=== PATIENT | female | born 1930 | race African-American/Black ===

== ENCOUNTER 2017-09-26 14:13 | Observation (INO) ==
[2017-09-26 15:06] LABS: Basophils % 0.5 %; Eosinophils # 0.1 K/mcL (0.0-0.6); Eosinophils % 2.6 %; Hematocrit 32.8 % (35.3-44.9); Hemoglobin 11.1 g/dL (11.5-15.4); Immature Granulocytes % 0.3 % (0-4); Lymphocytes # 1.4 K/mcL (0.6-4.6); Lymphocytes % 35.5 %; Mean Corpuscular HGB Conc 33.8 g/dL (31.6-35.5); Mean Corpuscular Hemoglobin 32.4 pg (28.0-33.3); Mean Corpuscular Volume 95.6 fL (83.0-100.0); Mean Platelet Volume 9.8 fL (9.4-12.4); Monocytes # 0.5 K/mcL (0.0-1.3); Neutrophils # 1.9 K/mcL (1.6-8.9); Platelet Count 124 K/mcL (140-400); Red Blood Count 3.43 M/mcL (3.82-4.97); Red Cell Distribution Width 12.1 % (11.5-14.5); Segmented Neutrophils % 49.1 %
[2017-09-26 15:13] LABS: Bilirubin,Urine Negative (Negative); Blood,Urine Trace-intact (Negative); Clarity,Urine Clear (Clear); Color,Urine Yellow (Yellow); Glucose,Urine (UA) Normal (Normal); Ketones,Urine Negative (Negative); Leukocyte Esterase,Urine Moderate (Negative); Nitrite,Urine Negative (Negative); PH,Urine 6.5 pH Units (5.0-8.0); Protein,Urine 30 mg/dL (Neg-Trace); Urobilinogen,Urine Normal (Normal)
[2017-09-26 15:15] LABS: Bacteria,Urine Moderate per hpf (None-Few); RBC,Urine 0-3 per hpf (0-3); Squamous Epithelial Cell,Urine Few per lpf (None-Few); WBC,Urine 50-100 per hpf (0-3)
[2017-09-26 15:26] LABS: Albumin 3.1 g/dL (3.5-5.0); Albumin/Globulin Ratio 0.8 (1.1-2.2); Bilirubin,Total 0.5 mg/dL (0.2-1.2); Globulin 3.7 g/dL (2.4-3.5); Potassium 4.3 mEq/L (3.5-4.5); Total Protein 6.8 g/dL (6.0-8.3)
[2017-09-26] MEDS ORDERED: cefTRIAXone 1,000 MG in Water for inj. (sterile) 10 ML IVP ONE ×2 (15:41→15:52)
[2017-09-26] MEDS ORDERED: 0.9 % Sodium Chloride 1,000 ML IVC SCH (15:45)
--- NOTE | 2017-09-26 15:50 | Emergency Department Note ---
Disposition Clinical Impression: Dizziness Urinary tract infection Qualifiers: Urinary tract infection type: acute cystitis Hematuria presence: without hematuria Qualified Code(s): N30.00 - Acute cystitis without hematuria Disposition: Admitted As Inpatient Time of Disposition: 15:58 Dizziness HPI - General Chief Complaint: ED Dizziness Stated Complaint: Off Balance Time Seen by Provider: 09/26/17 14:19 Source: patient Mode of arrival: EMS Limitations: no limitations Nursing Notes Reviewed: Yes Vital Signs Reviewed: Yes - History of Present Illness HPI Narrative: 87-year-old female presents from home via EMS with complaints of frequent falls. Family reports patient got up and had a syncopal episode. Patient herself denies any complaints. Family reports patient falls frequently due to weakness in her lower extremities. Patient reports she did not hit her head but no loss of consciousness. Denies any nausea or vomiting. Pt Subjective Complaint: near syncope Onset (ago): [employer] Timing: sudden onset Description: "room spinning", lightheadedness, off-balance History of similar episodes: Yes History of trauma: Yes Severity: moderate Improves with: nothing Worsens with: position Associated symptoms: Reports: confusion. Denies: chest pain - Related Data Home Medications Medication Instructions Recorded Confirmed Aspirin 325 mg PO DAILY 02/10/16 09/26/17 Atorvastatin Calcium [Lipitor] 20 mg PO DAILY 02/10/16 09/26/17 Calcium Carbonate/Vitamin D2 1 each PO DAILY 02/10/16 09/26/17 [Oyster Shell Calcium-Vit D Tab] Clopidogrel [Plavix] 75 mg PO DAILY 02/10/16 09/26/17 Ergocalciferol (VITAMIN D2) 50,000 unit PO QWEEK 02/10/16 09/26/17 [Vitamin D2 (50,000 UNIT)] Furosemide [Lasix] 40 mg PO DAILY 02/10/16 09/26/17 Isosorbide MONOnitrate (24 HR) 60 mg PO DAILY 02/10/16 09/26/17 [Imdur] Nitroglycerin [Nitrostat] 0.4 mg SL ONCE PRN 02/10/16 09/26/17 Polyethylene Glycol 3350 [MiraLAX] 17 gm PO DAILY PRN 02/10/16 09/26/17 Ranolazine [Ranexa] 1,000 mg PO BID 02/10/16 09/26/17 Raloxifene [Evista] 60 mg PO DAILY 07/03/16 09/26/17 Citalopram Hydrobromide 10 mg PO DAILY 09/26/17 09/26/17 [Citalopram HBr] Propranolol HCl 60 mg PO DAILY 09/26/17 09/26/17 Previous Rx's Medication Instructions Recorded Cyanocobalamin (Vitamin B-12) 2,000 mcg PO DAILY #30 tablet 04/27/17 [Vitamin B-12] Allergies Allergy/AdvReac Type Severity Reaction Status Date / Time No Known Allergies Allergy Verified 09/26/17 14:30 All systems ED: reviewed and negative except as stated. Review of Systems: As Per HPI Constitutional: Denies: fever, chills ENT ED: Reports: other (pt extremely hardof hearing) Cardiovascular: Denies: chest pain, palpitations Respiratory: Denies: cough, dyspnea Gastrointestinal: Denies: nausea, vomiting Genitourinary: Reports: frequency Musculoskeletal: Denies: back pain Integumentary: Denies: rash Neurological: Reports: vertigo. Denies: headache, weakness, numbness Past Medical History - Past Medical History Attestation: Yes The following information was validated with the patient. Source: patient, nursing notes reviewed Medical history: Reports: arthritis, CHF, coronary artery disease, hyperlipidemia, hypertension, myocardial infarction, peripheral artery disease, renal disease Surgical history: Reports: carotid endarterectomy, coronary bypass (CABG), hysterectomy, orthopedic, other, other Psychiatric history: Reports: no psych history MACHINE CUTTER history: Reports: no MACHINE CUTTER history - Social History Smoking Status: Never smoker Smokeless Tobacco Status: No Alcohol use: Reports: unknown Drug use: Reports: none Physical Exam - General Limitations: no limitations General appearance: alert, in no apparent distress - Head Head exam: atraumatic, normocephalic - Eye Eye exam: Present: PERRL, EOMI. Absent: conjunctival injection - ENT ENT exam: normal oropharynx, mucous membranes moist - Neck Neck exam: Present: normal inspection, full ROM. Absent: tenderness - Chest Chest inspection: Present: normal inspection, symmetric chest wall rise - Respiratory Respiratory exam: Present: normal lung sounds bilaterally - Cardiovascular Cardiovascular exam: Present: regular rate, normal rhythm, normal heart sounds - Abdominal Exam Abdominal exam: Present: soft, Non-Tender, normal bowel sounds - Extremities Exam Extremities exam: Present: normal inspection. Absent: pedal edema - Neurological Exam Neurological exam: Present: alert, oriented X3, CN II-XII intact. Absent: normal gait (pt very unsteady on feet), motor sensory deficit - Psychiatric Psychiatric exam: Present: normal affect - Skin Skin exam: Present: warm, dry, intact, normal color Course Course Narrative: spoke with Dr Lawrence he has accepted pt to be admitted her for further evaluation Vital Signs Temperature 98.5 F 09/26/17 14:13 Pulse Rate 56 09/26/17 14:13 Respiratory Rate 16 09/26/17 14:13 Blood Pressure 180/69 09/26/17 14:13 O2 Sat by Pulse Oximetry 94 09/26/17 14:13 Temperature 97.7 F 09/26/17 21:00 Pulse Rate 63 09/26/17 21:00 Respiratory Rate 16 09/26/17 21:00 Blood Pressure 178/70 09/26/17 21:00 O2 Sat by Pulse Oximetry 96 09/26/17 21:00 Oxygen Delivery Oxygen Delivery Room Air Dizziness - Differential Diagnosis Unlikely: cerebellar infarct, cerebellar tumor - Lab Data Lab results reviewed: Yes I reviewed the patient's lab results. Lab results narrative: Patient with chronic pancytopenia. Patient with chronic renal insufficiency. Patient's urine is positive with infection. Result diagrams: 09/26/17 15:00 09/26/17 15:00 Lab Results 09/26/17 09/26/17 09/26/17 Range/Units 14:52 15:00 15:00 WBC 3.8 L (4.3-11.1) K/mcL RBC 3.43 L (3.82-4.97) M/mcL Hgb 11.1 L (11.5-15.4) g/dL Hct 32.8 L (35.3-44.9) % MCV 95.6 (83.0-100.0) fL MCH 32.4 (28.0-33.3) pg MCHC 33.8 (31.6-35.5) g/dL RDW 12.1 (11.5-14.5) % Plt Count 124 L (140-400) K/mcL MPV 9.8 (9.4-12.4) fL Immature Gran % 0.3 (0-4) % Seg Neutrophils % 49.1 % Lymphocytes % 35.5 % Monocytes % 12.0 % Eosinophils % 2.6 % Basophils % 0.5 % Neutrophils # 1.9 (1.6-8.9) K/mcL Lymphocytes # 1.4 (0.6-4.6) K/mcL Monocytes # 0.5 (0.0-1.3) K/mcL Eosinophils # 0.1 (0.0-0.6) K/mcL Basophils # 0.0 (0.0-0.2) K/mcL Sodium 140 (136-145) mEq/L Potassium 4.3 (3.5-4.5) mEq/L Chloride 106 (98-109) mEq/L Carbon Dioxide 22 (19-29) mEq/L BUN 31 H (7-20) mg/dL Creatinine 1.79 H (0.57-1.11) mg/dL Est GFR ( Amer) 33 L (> 60) Est GFR (Non-Af Amer) 27 L (> 60) BUN/Creatinine Ratio 17 (6-26) Glucose 95 (70-99) mg/dL Calculated Osmolality 296 (280-300) Calcium 9.0 (8.6-10.8) mg/dL Total Bilirubin 0.5 (0.2-1.2) mg/dL AST 17 (5-34) Units/L ALT 12 (0-55) Units/L Alkaline Phosphatase 70 (38-126) Units/L Creatine Kinase 63 (29-168) Units/L Troponin I (0-0.03) ng/mL Serum Total Protein 6.8 (6.0-8.3) g/dL Albumin 3.1 L (3.5-5.0) g/dL Globulin 3.7 H (2.4-3.5) g/dL Albumin/Globulin Ratio 0.8 L (1.1-2.2) Urine Color Yellow (Yellow) Urine Clarity Clear (Clear) Urine pH 6.5 (5.0-8.0) pH Units Ur Specific [place] 1.020 (1.010-1.025) Urine Protein 30 H (Neg-Trace) mg/dL Urine Glucose (UA) Normal (Normal) mg/dL Urine Ketones Negative (Negative) mg/dL Urine Blood Trace-intact H (Negative) Urine Nitrite Negative (Negative) Urine Bilirubin Negative (Negative) Urine Urobilinogen Normal (Normal) mg/dL Ur Leukocyte Esterase Moderate H (Negative) Urine Microscopic RBC 0-3 (0-3) per hpf Urine Microscopic WBC 50-100 H (0-3) per hpf Ur Squamous Epith Cells Few (None-Few) per lpf Urine Bacteria Moderate H (None-Few) per hpf Ur Culture Indicated? YES A (NO) 09/26/17 Range/Units 15:00 WBC (4.3-11.1) K/mcL RBC (3.82-4.97) M/mcL Hgb (11.5-15.4) g/dL Hct (35.3-44.9) % MCV (83.0-100.0) fL MCH (28.0-33.3) pg MCHC (31.6-35.5) g/dL RDW (11.5-14.5) % Plt Count (140-400) K/mcL MPV (9.4-12.4) fL Immature Gran % (0-4) % Seg Neutrophils % % Lymphocytes % % Monocytes % % Eosinophils % % Basophils % % Neutrophils # (1.6-8.9) K/mcL Lymphocytes # (0.6-4.6) K/mcL Monocytes # (0.0-1.3) K/mcL Eosinophils # (0.0-0.6) K/mcL Basophils # (0.0-0.2) K/mcL Sodium (136-145) mEq/L Potassium (3.5-4.5) mEq/L Chloride (98-109) mEq/L Carbon Dioxide (19-29) mEq/L BUN (7-20) mg/dL Creatinine (0.57-1.11) mg/dL Est GFR ( Amer) (> 60) Est GFR (Non-Af Amer) (> 60) BUN/Creatinine Ratio (6-26) Glucose (70-99) mg/dL Calculated Osmolality (280-300) Calcium (8.6-10.8) mg/dL Total Bilirubin (0.2-1.2) mg/dL AST (5-34) Units/L ALT (0-55) Units/L Alkaline Phosphatase (38-126) Units/L Creatine Kinase (29-168) Units/L Troponin I 0.01 (0-0.03) ng/mL Serum Total Protein (6.0-8.3) g/dL Albumin (3.5-5.0) g/dL Globulin (2.4-3.5) g/dL Albumin/Globulin Ratio (1.1-2.2) Urine Color (Yellow) Urine Clarity (Clear) Urine pH (5.0-8.0) pH Units Ur Specific [place] (1.010-1.025) Urine Protein (Neg-Trace) mg/dL Urine Glucose (UA) (Normal) mg/dL Urine Ketones (Negative) mg/dL Urine Blood (Negative) Urine Nitrite (Negative) Urine Bilirubin (Negative) Urine Urobilinogen (Normal) mg/dL Ur Leukocyte Esterase (Negative) Urine Microscopic RBC (0-3) per hpf Urine Microscopic WBC (0-3) per hpf Ur Squamous Epith Cells (None-Few) per lpf Urine Bacteria (None-Few) per hpf Ur Culture Indicated? (NO) - Radiology Data Radiology results reviewed: Yes I reviewed the patient's radiology results. Patient's CT head was interpreted by the radiologist as positive for which can make stable. Positive for chronic white matter changes consistent with age- related changes. No acute malady seen. Results discussed with family. - EKG Data EKG attestation: Yes I reviewed and interpreted this EKG. EKG shows normal: sinus rhythm Rate: normal Rhythm: NSR [place]/QRS: normal Interpretation: no acute changes
[2017-09-26] MEDS ORDERED: Nitroglycerin 0.4 MG TAB.SUBL SL PRN (15:53)
[2017-09-26] MEDS ORDERED: Naloxone 0.4 MG/ML INJ IVP PRN (15:57)
[2017-09-26] MEDS: 0.9 % Sodium Chloride 1,000 ML IVC SCH (16:37)
--- NOTE | 2017-09-26 16:58 | Internal Med History&Physical ---
Date of Encounter: 09/26/17 Time of Encounter: 16:30 Assessment and Plan (1) Atrial fibrillation with controlled ventricular rate Current visit: Yes Status: Acute I reviewed her chart in [facility] including Dr. Austin Goodman note from April 28, 2017. I can't find any history of previous atrial fibrillation. She has no history of CVA. She certainly gives a history of frequent falls. Her rate is controlled. CT done in the ED here did not show any acute abnormality. I would not pursue anticoagulation on her at this time. Most recent echocardiogram was May 03, 2017 which showed ejection fraction of 60% and moderate aortic stenosis, otherwise normal, good wall motion diffusely. (2) Hypertension Current visit: Yes Status: Acute Her systolic blood pressure was above 200 by single reading here in the hospital. For right now we'll just continue to monitor as I don't think she has any acute symptoms of elevated blood pressure. Qualifiers: Hypertension type: essential hypertension Qualified Code(s): I10 - Essential (primary) hypertension (3) CKD (chronic kidney disease) stage 3, GFR 30-59 ml/min Current visit: Yes Status: Acute hher chronic kidney dise darks tools she describes aren't likely secondary to her oral iron supplementation which is listed in [facility] but not in her current chart. Code(s): N18.3 - Chronic kidney disease, stage 3 (moderate) (4) Pernicious anemia Current visit: Yes Status: Acute Her anemia is mild and chronic and stable. Code(s): D51.0 - Vitamin B12 deficiency anemia due to intrinsic factor deficiency (5) CAD (coronary artery disease) Current visit: Yes Status: Acute She is having no current symptoms. Qualifiers: Coronary Disease-Associated Artery/Lesion type: bypass graft, autologous vein Associated angina: without angina Qualified Code(s): I25.810 - Atherosclerosis of coronary artery bypass graft(s) without angina pectoris (6) HLD (hyperlipidemia) Current visit: Yes Status: Acute Continue her current treatment. She has a history of known coronary artery disease and is currently on Lipitor. Qualifiers: Hyperlipidemia type: mixed hyperlipidemia Qualified Code(s): E78.2 - Mixed hyperlipidemia (7) Osteoporosis Current visit: Yes Status: Acute Continue current meds. She has had recurrent falls. Qualifiers: Osteoporosis type: age-related Presence of current pathological fracture: without current pathological fracture Qualified Code(s): M81.0 - Age-related osteoporosis without current pathological fracture (8) Urinary tract infection Current visit: Yes Status: Acute This is likely her current problem. Her recent culture was negative but she was on Cipro at the time that was taken. We're repeating culture. Her urinalysis today is more convincing that she has an active infection. She is being treated with ceftriaxone. Qualifiers: Urinary tract infection type: acute cystitis Hematuria presence: without hematuria Qualified Code(s): N30.00 - Acute cystitis without hematuria Internal Medicine - H&P: HPI Admitted From: Emergency Dept Plans for Post Hospital Care: Home History of present illness: Ms. Marsh is a 87 year old female who presents from home with frequent falls. The history is obtained from the patient at the time I see her. The family had been here earlier in the ED but they're not present now. She's had frequent falls in the past and also more frequently over the last few weeks prior to admission. She describes himself as feeling "off balance" but denies vertigo. She says she gets postural dizziness with standing at times but none on the day of admission. Her most recent fall was on the morning of admission, she says she started to go to the bathroom and felt her legs go out on her. She says she was not weak with this at all however. She says she bumped the back of her head with her fall typically does. She says she never bumped the front of her head.Family says after her last fall her legs were just too weak to hold her off. In the ENT was confirmed that she was unable to walk stably and it was determined that she was not safe to go home. She was seen in her primary care doctor's office on September 24 and I reviewed that note. She had been on Cipro but was changed to Bactrim. She says she started to feel better over a day or 2. Urinalysis at that visit showed a trace of blood but was negative for nitrates. Urine then showed moderate leukocytes but urine culture was negative. She reports urinary frequency but denies fever, chills, flank pain or abdominal pain. She has not seen any hematuria. She says her appetite has been poor for the last 3 days and she is very little. She tells me her last bowel movement was 3 days ago. She tells me her stools are chronically black from the medication that she takes that her kidney doctor gives her. She has a history of hypertension but in reviewing her office blood pressures they're usually pretty well controlled. Past Med Surg Social Fam HX - Past Medical History Source: patient, old records reviewed, obtained from family Medical history: arthritis, CHF, coronary artery disease, GERD, hyperlipidemia, hypertension, myocardial infarction, peripheral artery disease, renal disease ( He), valvular heart disease (History of aortic stenosis.), other (She has a history of pernicious anemia, cervical stenosis of her spinal canal, status post coronary artery stent placement, osteoporosis, hearing loss, mixed hyperlipidemia, gout and glaucoma. She had a CABG in 1997. She has ulnar neuropathy that is severe with wasting.) Psychiatric history: depression - Past Surgical History Surgical History: angioplasty/stent, carotid endarterectomy, coronary bypass ( CABG), hysterectomy, orthopedic, other, other, vascular surgery (CABG ) - Social History Smoking Status: Never smoker Smokeless Tobacco Status: No Alcohol use: unknown Drug use: none Current living situation: Home (She lives with her son and 12-year-old granddaughter.), With Family Activity Level: Uses cane/walker Recent Out of Country Travel Within the Last 8 Weeks: No Exposure or Possible Exposure to Illness During Travel: No - Family History Father Living Status: Hx Family Cardiac Disorders: Yes (CAD) Mother Hx Family Cardiac Disorders: Yes (hypertension) Sister Hx Family Cardiac Disorders: Yes (CAD) Hx Family Endocrine Disorder: Yes (diabetes) Brother Living Status: Hx Family Cardiac Disorders: Yes (CAD) Internal Medicine - H&P: Meds Aspirin 325 mg PO DAILY 02/10/16 [History] Atorvastatin Calcium [Lipitor] 20 mg PO DAILY 02/10/16 [History] Calcium Carbonate/Vitamin D2 [Oyster Shell Calcium-Vit D Tab] 1 each PO DAILY [History] Clopidogrel [Plavix] 75 mg PO DAILY 02/10/16 [History] Ergocalciferol (VITAMIN D2) [Vitamin D2 (50,000 UNIT)] 50,000 unit PO QWEEK [History] Furosemide [Lasix] 40 mg PO DAILY 02/10/16 [History] Isosorbide MONOnitrate (24 HR) [Imdur] 60 mg PO DAILY 02/10/16 [History] Nitroglycerin [Nitrostat] 0.4 mg SL ONCE PRN 02/10/16 [History] Polyethylene Glycol 3350 [MiraLAX] 17 gm PO DAILY PRN 02/10/16 [History] Ranolazine [Ranexa] 1,000 mg PO BID 02/10/16 [History] Raloxifene [Evista] 60 mg PO DAILY 07/03/16 [History] Cyanocobalamin (Vitamin B-12) [Vitamin B-12] 2,000 mcg PO DAILY #30 tablet 04/27 [Rx] Citalopram Hydrobromide [Citalopram HBr] 10 mg PO DAILY 09/26/17 [History] Propranolol HCl 60 mg PO DAILY 09/26/17 [History] 3 Allergy/AdvReac Type Severity Reaction Status Date / Time No Known Allergies Allergy Verified 09/26/17 14:30 All Systems PM: A 10-system review of systems was performed and is negative for pertinent findings except as documented above in the HPI. - Constitutional Constitutional: anorexia, weakness, no fever(s) - EENT Eyes: no change in vision Ears: decreased hearing (Chronically she is hard of hearing) Nose, mouth and throat: no change in voice, no sore throat - Cardiovascular Cardiovascular ROS IM: edema (She says that she gets lower extremity edema toward the end of the day), no chest pain, no diaphoresis, no dyspnea, no palpitations, no syncope - Respiratory Respiratory: cough, no dyspnea, no hemoptysis, no wheezing Additional comments: She tells me that chronically about every third night she gets cough at night brings up a small amount of clear phlegm. She says she has not had this the last few days. - Gastrointestinal Gastrointestinal: no abdominal pain, no change in bowel habits, no change in stool character, no diarrhea, no heartburn - Genitourinary Genitourinary: urinary frequency, no pelvic pain, no urinary incontinence Menstruation: post menopausal - Musculoskeletal Musculoskeletal ROS IM: as per HPI, no back pain, no joint swelling - Integumentary Integumentary IM: no rash - Neurological Neurological ROS: as per HPI, weakness - Psychiatric Psychiatric: no anxiety, no depression - Endocrine Endocrine IM: no fatigue - Hematologic/Lymphatic Hematologic/Lymphatic: as per HPI - Constitutional Vitals: Blood pressures since she arrived to the hospital have been up and down. Most recent one was 189/69. Temp Pulse Resp BP Pulse Ox 97.7 F 64 14 213/83 97 09/26/17 16:20 09/26/17 16:20 09/26/17 16:20 09/26/17 16:20 09/26/17 16:20 General appearance: Present: cooperative, A&O X 3, pleasant, no acute distress, answers questions appropriately - Head Head exam: Present: atraumatic, normocephalic Additional comments: She has a nontender flat bump on the L occipital area. It's firm but not bony hard, not fluctuant, no tenderness or other inflammation. It could be a epidermoid cyst versus nonacute swelling from trauma. - Eye Eye exam: Present: PERRL, conjuntiva pink, sclera anicteric Pupils: Present: PERRL - Neck Neck exam general surgery: Present: supple, trachea midline. Absent: lymphadenopathy - Respiratory Respiratory exam: Present: CTAB. Absent: accessory muscle use, rales, rhonchi, wheezes - Cardiovascular Cardiovascular exam: Present: irregular rhythm (She has a 3/6 systolic murmur heard across the precordium with radiation toward both carotids consistent with her diagnosis of aortic stenosis.), RRR, +S1, +S2, systolic murmur. Absent: diastolic murmur, gallop, rubs - GI/Abdominal GI/Abdominal exam: Present: normal bowel sounds, soft, no peritoneal signs. Absent: bruit, distended, hepatomegaly, mass, splenomegaly, tenderness - Extremities Exam Extremities exam: Present: normal capillary refill (She does have some muscle wasting in the right hand.), warm, radial pulses palpable and symmetrical. Absent: calf tenderness, cyanotic, mottling, pedal edema, tenderness - Neurological Exam Neurological exam: Present: CN II-XII intact, oriented X3, no focal deficits, strengths equal and symetr throughout (Normal strength for age in upper and lower extremities, she follows commands appropriately and pleasantly.). Absent : pronater drift, facial droop, speech deficit - Skin Skin exam: Present: dry, intact Internal Med - H&P Results - Labs CBC & Chem 7: 09/26/17 15:00 09/26/17 15:00 - EKG Data -: EKG Interpreted by Myself EKG shows normal: axis, intervals, QRS complexes, ST-T waves Rate: normal - Impressions atrial fibrillation with ventricular rate of 60
[2017-09-26] MEDS: Ranolazine 500 MG TAB.ER.12H PO SCH (20:21)
[2017-09-27] MEDS: 0.9 % Sodium Chloride 1,000 ML IVC SCH (04:09)
[2017-09-27 06:36] LABS: Basophils % 0.5 %; Eosinophils # 0.1 K/mcL (0.0-0.6); Eosinophils % 3.1 %; Hematocrit 31.5 % (35.3-44.9); Hemoglobin 10.8 g/dL (11.5-15.4); Immature Granulocytes % 0.5 % (0-4); Lymphocytes # 1.3 K/mcL (0.6-4.6); Lymphocytes % 34.2 %; Mean Corpuscular HGB Conc 34.3 g/dL (31.6-35.5); Mean Corpuscular Hemoglobin 33.2 pg (28.0-33.3); Mean Corpuscular Volume 96.9 fL (83.0-100.0); Monocytes # 0.5 K/mcL (0.0-1.3); Platelet Count 120 K/mcL (140-400); Red Blood Count 3.25 M/mcL (3.82-4.97); Red Cell Distribution Width 11.9 % (11.5-14.5); Segmented Neutrophils % 49.7 %
[2017-09-27 06:38] LABS: Neutrophils # 1.9 K/mcL (1.6-8.9)
[2017-09-27 06:46] LABS: Calcium 8.8 mg/dL (8.6-10.8); Potassium 4.3 mEq/L (3.5-4.5)
[2017-09-27] MEDS: Furosemide 40 MG TABLET PO SCH (08:21)
[2017-09-27] MEDS: Cyanocobalamin (B-12) 1,000 MCG TABLET PO SCH (08:22)
[2017-09-27] MEDS: Isosorbide MONOnitrate (24 HR) 60 MG TAB.ER.24H PO SCH (08:22)
[2017-09-27] MEDS: Ranolazine 500 MG TAB.ER.12H PO SCH ×2 (08:22→22:11)
[2017-09-27] MEDS: Aspirin 325 MG TABLET PO SCH (08:22)
[2017-09-27] MEDS: cefTRIAXone 1,000 MG in Water for inj. (sterile) 10 ML IVP SCH (08:23)
[2017-09-27] MEDS: CALCIUM CARBONATE PO SCH (08:24)
[2017-09-27] MEDS: VITAMIN D2 PO SCH (08:24)
--- NOTE | 2017-09-27 13:06 | Internal Med Progress Note ---
Date of Encounter: 09/27/17 Time of Encounter: 12:30 - Assessment and plan (1) Urinary tract infection Current Visit: Yes Status: Acute Assessment and plan: she is on rocephin. urine culture is pending she is afebrile. will await the culture Qualifiers: Urinary tract infection type: acute cystitis Hematuria presence: without hematuria Qualified Code(s): N30.00 - Acute cystitis without hematuria (2) Dizziness Current Visit: Yes Status: Acute Assessment and plan: states she feels better. will saline well the ivf. (3) Atrial fibrillation with controlled ventricular rate Current Visit: Yes Status: Acute Assessment and plan: she is not a candidate for anticoagulation with her hx of falls. she is rate controlled. she is on a betablocker (4) Hypertension Current Visit: Yes Status: Acute Assessment and plan: not controlled. will add her hydralazine back. i am not sure what she is taking at home. she will just stop medication on her own Qualifiers: Hypertension type: essential hypertension Qualified Code(s): I10 - Essential (primary) hypertension (5) CKD (chronic kidney disease) stage 3, GFR 30-59 ml/min Current Visit: Yes Status: Acute Assessment and plan: better with ivf. will saline well the ivf (6) Pernicious anemia Current Visit: Yes Status: Acute (7) CAD (coronary artery disease) Current Visit: Yes Status: Acute Qualifiers: Coronary Disease-Associated Artery/Lesion type: bypass graft, autologous vein Associated angina: without angina Qualified Code(s): I25.810 - Atherosclerosis of coronary artery bypass graft(s) without angina pectoris (8) HLD (hyperlipidemia) Current Visit: Yes Status: Acute Qualifiers: Hyperlipidemia type: mixed hyperlipidemia Qualified Code(s): E78.2 - Mixed hyperlipidemia - Subjective Interval history: she is up in the halls walking to nurse station with the walker and the nurse. denies cp, awan, dizzy, palp, pain. states bowels are ok. no dysuria. neighbor states she had several falls at home. states she feels good, no vision changes - Constitutional Vitals: Temp Pulse Resp BP Pulse Ox 97.6 F 63 16 221/74 99 09/27/17 12:05 09/27/17 12:05 09/27/17 12:05 09/27/17 12:05 09/27/17 12:05 General appearance: Present: cooperative, A&O X 3, pleasant, no acute distress, answers questions appropriately - Head Head exam: Present: atraumatic, normocephalic - Respiratory Respiratory exam: Present: CTAB - Cardiovascular Cardiovascular exam: Present: irregular rhythm, systolic murmur - GI/Abdominal GI/Abdominal exam: Present: normal bowel sounds, soft, no peritoneal signs. Absent: guarding, mass, tenderness - Extremities Exam Extremities exam: Absent: mottling, pedal edema - Skin Skin exam: Present: dry, warm Internal Medicine: Result - Labs CBC & Chem 7: 09/27/17 06:15 09/27/17 06:15 Labs: Short CBC 09/27/17 Range/Units 06:15 WBC 3.9 L (4.3-11.1) K/mcL Hgb 10.8 L (11.5-15.4) g/dL Hct 31.5 L (35.3-44.9) % Plt Count 120 L (140-400) K/mcL Neutrophils # 1.9 (1.6-8.9) K/mcL BMP 09/27/17 06:15 Sodium 141 Potassium 4.3 Chloride 109 Carbon Dioxide 25 BUN 26 H Creatinine 1.55 H Glucose 91 Calcium 8.8 - VTE Documentation of Mechanical Device: Graduated compression elastic hosiery Consult Discharge Plan - Plan Referrals: Aida Norman MD [Primary Care Provider] -
[2017-09-27] MEDS: hydrALAZINE 10 MG TABLET PO SCH ×2 (13:13→17:10)
[2017-09-28] MEDS: hydrALAZINE 10 MG TABLET PO SCH ×3 (00:18→17:44)
[2017-09-28 05:43] LABS: Basophils % 0.4 %; Eosinophils # 0.2 K/mcL (0.0-0.6); Eosinophils % 4.3 %; Hematocrit 30.5 % (35.3-44.9); Hemoglobin 10.5 g/dL (11.5-15.4); Immature Granulocytes % 0.4 % (0-4); Lymphocytes # 1.5 K/mcL (0.6-4.6); Lymphocytes % 33.9 %; Mean Corpuscular HGB Conc 34.4 g/dL (31.6-35.5); Mean Corpuscular Hemoglobin 33.1 pg (28.0-33.3); Mean Corpuscular Volume 96.2 fL (83.0-100.0); Monocytes # 0.6 K/mcL (0.0-1.3); Neutrophils # 2.1 K/mcL (1.6-8.9); Platelet Count 111 K/mcL (140-400); Red Blood Count 3.17 M/mcL (3.82-4.97); Red Cell Distribution Width 12.1 % (11.5-14.5)
[2017-09-28 05:54] LABS: Calcium 8.9 mg/dL (8.6-10.8); Potassium 3.9 mEq/L (3.5-4.5)
[2017-09-28] MEDS: CALCIUM CARBONATE PO SCH (10:10)
[2017-09-28] MEDS: VITAMIN D2 PO SCH (10:10)
[2017-09-28] MEDS: Aspirin 325 MG TABLET PO SCH (10:16)
[2017-09-28] MEDS: Ranolazine 500 MG TAB.ER.12H PO SCH ×2 (10:17→22:10)
[2017-09-28] MEDS: Furosemide 40 MG TABLET PO SCH (10:17)
[2017-09-28] MEDS: Isosorbide MONOnitrate (24 HR) 60 MG TAB.ER.24H PO SCH (10:17)
[2017-09-28] MEDS: Cyanocobalamin (B-12) 1,000 MCG TABLET PO SCH (10:17)
[2017-09-28] MEDS: cefTRIAXone 1,000 MG in Water for inj. (sterile) 10 ML IVP SCH (10:20)
--- NOTE | 2017-09-28 10:58 | Internal Med Progress Note ---
Date of Encounter: 09/28/17 Time of Encounter: 10:58 - Assessment and plan (1) Urinary tract infection Current Visit: Yes Status: Acute Assessment and plan: she is on rocephin. urine culture is pending she is afebrile. culture negative Qualifiers: Urinary tract infection type: acute cystitis Hematuria presence: without hematuria Qualified Code(s): N30.00 - Acute cystitis without hematuria (2) Dizziness Current Visit: Yes Status: Acute Assessment and plan: states she feels better she is off the ivf (3) Atrial fibrillation with controlled ventricular rate Current Visit: Yes Status: Acute Assessment and plan: she is not a candidate for anticoagulation with her hx of falls. she is rate controlled. she is on a betablocker (4) Hypertension Current Visit: Yes Status: Acute Assessment and plan: not controlled. will increase her hydralazine. i am not sure what she is taking at home. she will just stop medication on her own Qualifiers: Hypertension type: essential hypertension Qualified Code(s): I10 - Essential (primary) hypertension (5) CKD (chronic kidney disease) stage 3, GFR 30-59 ml/min Current Visit: Yes Status: Acute Assessment and plan: better after ivf. (6) Pernicious anemia Current Visit: Yes Status: Acute (7) CAD (coronary artery disease) Current Visit: Yes Status: Acute Qualifiers: Coronary Disease-Associated Artery/Lesion type: bypass graft, autologous vein Associated angina: without angina Qualified Code(s): I25.810 - Atherosclerosis of coronary artery bypass graft(s) without angina pectoris (8) HLD (hyperlipidemia) Current Visit: Yes Status: Acute Qualifiers: Hyperlipidemia type: mixed hyperlipidemia Qualified Code(s): E78.2 - Mixed hyperlipidemia - Subjective Interval history: she is feeling better today. denies cp, awan, dizzy, palp, pain. states bowels are ok. no dysuria. states she feels good, no vision changes - Constitutional Vitals: Temp Pulse Resp BP Pulse Ox 97.6 F 59 20 187/63 100 09/28/17 08:40 09/28/17 08:40 09/28/17 08:40 09/28/17 08:40 09/28/17 08:40 General appearance: Present: cooperative, A&O X 3, pleasant, no acute distress, answers questions appropriately - Head Head exam: Present: atraumatic, normocephalic - Neck Neck exam general surgery: Present: supple, trachea midline. Absent: lymphadenopathy - Respiratory Respiratory exam: Present: CTAB - Cardiovascular Cardiovascular exam: Present: RRR, systolic murmur - GI/Abdominal GI/Abdominal exam: Present: normal bowel sounds, soft, no peritoneal signs. Absent: distended, guarding, mass, rebound, tenderness - Extremities Exam Extremities exam: Present: warm. Absent: mottling, pedal edema - Skin Skin exam: Present: dry, warm. Absent: rash Internal Medicine: Result - Labs CBC & Chem 7: 09/28/17 05:15 09/28/17 05:15 Labs: Short CBC 09/28/17 Range/Units 05:15 WBC 4.5 (4.3-11.1) K/mcL Hgb 10.5 L (11.5-15.4) g/dL Hct 30.5 L (35.3-44.9) % Plt Count 111 L (140-400) K/mcL Neutrophils # 2.1 (1.6-8.9) K/mcL BMP 09/28/17 05:15 Sodium 141 Potassium 3.9 Chloride 108 Carbon Dioxide 25 BUN 26 H Creatinine 1.62 H Glucose 87 Calcium 8.9 - VTE Documentation of Mechanical Device: Graduated compression elastic hosiery Consult Discharge Plan - Plan Referrals: Aida Norman MD [Primary Care Provider] -
[2017-09-28] MEDS: hydrALAZINE 25 MG TABLET PO SCH (12:23)
[2017-09-28] MEDS: 0.9 % Sodium Chloride 1,000 ML IVC SCH (13:37)
--- NOTE | 2017-09-28 21:41 | Electrocardiograph Report ---
[place] [id number] Test Date: 2017-09-26 Pat Name: Anh Marsh Department: 2000 Room: 111 Gender: F Client Experience Manager: : 1930 Requested By: Jena Maradiaga Order Number: [id number] Reading MD: Nigel Barros MD Measurements Intervals [place] Rate: 60 P: [place]: 0 QRS: -5 QRSD: 97 T: 35 QT: 433 QTc: 435 Interpretive Statements SINUS RHYTHM WITH PACS BASELINE ARTIFACT COMPLICATES ACCURATE INTERPRETATION Electronically Signed On 09-28-2017 21:40:25 EST by Nigel Barros MD
[2017-09-29] MEDS: hydrALAZINE 10 MG TABLET PO SCH ×4 (00:34→17:38)
--- NOTE | 2017-09-29 06:04 | Electrocardiograph Report ---
[place] [id number] Test Date: 2017-09-27 Pat Name: Anh Marsh Department: 2001 Room: 111 Gender: Relief Man: : 1930 Requested By: Buck Whatley Order Number: [id number] Reading MD: Nigel Barros MD Measurements Intervals [place] Rate: 62 P: 96 MA: 246 QRS: 11 QRSD: 93 T: 34 QT: 429 QTc: 433 Interpretive Statements SINUS RHYTHM WITH FIRST DEGREE AV BLOCK MINIMAL VOLTAGE CRITERIA FOR LVH, CONSIDER NORMAL VARIANT Poor R wave progression BASELINE ARTIFACT Electronically Signed On 09-29-2017 6:02:41 EST by Nigel Barros MD
[2017-09-29] MEDS: Aspirin 325 MG TABLET PO SCH (09:15)
[2017-09-29] MEDS: Isosorbide MONOnitrate (24 HR) 60 MG TAB.ER.24H PO SCH (09:16)
[2017-09-29] MEDS: Cyanocobalamin (B-12) 1,000 MCG TABLET PO SCH (09:16)
[2017-09-29] MEDS: Furosemide 40 MG TABLET PO SCH (09:16)
[2017-09-29] MEDS: Ranolazine 500 MG TAB.ER.12H PO SCH ×2 (09:16→21:01)
[2017-09-29] MEDS: VITAMIN D2 PO SCH (09:18)
[2017-09-29] MEDS: CALCIUM CARBONATE PO SCH (09:18)
[2017-09-29] MEDS: cefTRIAXone 1,000 MG in Water for inj. (sterile) 10 ML IVP SCH (09:18)
--- NOTE | 2017-09-29 14:37 | Internal Med Progress Note ---
Date of Encounter: 09/29/17 Time of Encounter: 14:34 - Assessment and plan (1) Urinary tract infection Current Visit: Yes Status: Acute Assessment and plan: she is on rocephin. urine culture is pending she is afebrile. culture negative d/c rocephin Qualifiers: Urinary tract infection type: acute cystitis Hematuria presence: without hematuria Qualified Code(s): N30.00 - Acute cystitis without hematuria (2) Dizziness Current Visit: Yes Status: Acute Assessment and plan: states she feels better she is off the ivf but unsteady will need to continue the pt/ot (3) Atrial fibrillation with controlled ventricular rate Current Visit: Yes Status: Acute Assessment and plan: she is not a candidate for anticoagulation with her hx of falls. she is rate controlled. she is on a betablocker (4) Hypertension Current Visit: Yes Status: Acute Assessment and plan: not controlled. but improving. i am not sure what she is taking at home. she will just stop medication on her own Qualifiers: Hypertension type: essential hypertension Qualified Code(s): I10 - Essential (primary) hypertension (5) CKD (chronic kidney disease) stage 3, GFR 30-59 ml/min Current Visit: Yes Status: Acute Assessment and plan: better after ivf. (6) Pernicious anemia Current Visit: Yes Status: Acute (7) CAD (coronary artery disease) Current Visit: Yes Status: Acute Qualifiers: Coronary Disease-Associated Artery/Lesion type: bypass graft, autologous vein Associated angina: without angina Qualified Code(s): I25.810 - Atherosclerosis of coronary artery bypass graft(s) without angina pectoris (8) HLD (hyperlipidemia) Current Visit: Yes Status: Acute Qualifiers: Hyperlipidemia type: mixed hyperlipidemia Qualified Code(s): E78.2 - Mixed hyperlipidemia (9) Physical deconditioning Current Visit: Yes Status: Acute Assessment and plan: continue the pt/ot. she is not safe at home. therapy recommend continuing the pt/ot. she is unsteady and at high risk for falls. will send to [facility] after d/c - Subjective Interval history: she is feeling better today. denies cp, awan, dizzy, palp, pain. states bowels are ok. no dysuria. states she feels good, she is off balance unsteady almost fell - Constitutional Vitals: Temp Pulse Resp BP Pulse Ox 97.9 F 57 16 160/68 98 09/29/17 12:00 09/29/17 12:00 09/29/17 12:00 09/29/17 12:00 09/29/17 12:00 General appearance: Present: cooperative, A&O X 3, pleasant, no acute distress, answers questions appropriately - Head Head exam: Present: atraumatic, normocephalic - Neck Neck exam general surgery: Present: supple, trachea midline. Absent: lymphadenopathy - Respiratory Respiratory exam: Present: CTAB - Cardiovascular Cardiovascular exam: Present: RRR, systolic murmur - GI/Abdominal GI/Abdominal exam: Present: normal bowel sounds, soft, no peritoneal signs. Absent: distended, guarding, tenderness - Extremities Exam Extremities exam: Present: warm. Absent: mottling, pedal edema Internal Medicine: Result - Labs CBC & Chem 7: 09/28/17 05:15 09/28/17 05:15 - VTE Documentation of Mechanical Device: Graduated compression elastic hosiery Consult Discharge Plan - Plan Referrals: Aida Norman MD [Primary Care Provider] -
--- NOTE | 2017-09-29 14:45 | Physician Discharge Referral ---
ExtendedCare Referral Info Transfer To: [facility] Provider in Charge: [place] Provider in Charge after Transfer: Other [place]) Institutional Level of Care: Skilled - Diagnosis (1) Urinary tract infection Priority: Primary Status: Acute (2) Dizziness Priority: Secondary Status: Acute (3) Atrial fibrillation with controlled ventricular rate Priority: Secondary Status: Acute (4) Hypertension Priority: Secondary Status: Acute (5) CKD (chronic kidney disease) stage 3, GFR 30-59 ml/min Priority: Secondary Status: Acute (6) Pernicious anemia Priority: Secondary Status: Acute (7) CAD (coronary artery disease) Priority: Secondary Status: Acute (8) HLD (hyperlipidemia) Priority: Secondary Status: Acute (9) Physical deconditioning Priority: Secondary Status: Acute Prognosis: Good Aware of Diagnosis: Patient Aware of Prognosis: Patient - Transfer Medications Home Medications: Aspirin 325 mg PO DAILY 02/10/16 [History] Atorvastatin Calcium [Lipitor] 20 mg PO DAILY 02/10/16 [History] Calcium Carbonate/Vitamin D2 [Oyster Shell Calcium-Vit D Tab] 1 each PO DAILY [History] Clopidogrel [Plavix] 75 mg PO DAILY 02/10/16 [History] Ergocalciferol (VITAMIN D2) [Vitamin D2 (50,000 UNIT)] 50,000 unit PO QWEEK [History] Furosemide [Lasix] 40 mg PO DAILY 02/10/16 [History] Isosorbide MONOnitrate (24 HR) [Imdur] 60 mg PO DAILY 02/10/16 [History] Nitroglycerin [Nitrostat] 0.4 mg SL ONCE PRN 02/10/16 [History] Polyethylene Glycol 3350 [MiraLAX] 17 gm PO DAILY PRN 02/10/16 [History] Ranolazine [Ranexa] 1,000 mg PO BID 02/10/16 [History] Raloxifene [Evista] 60 mg PO DAILY 07/03/16 [History] Cyanocobalamin (Vitamin B-12) [Vitamin B-12] 2,000 mcg PO DAILY #30 tablet 04/27 [Rx] Citalopram Hydrobromide [Citalopram HBr] 10 mg PO DAILY 09/26/17 [History] Propranolol HCl 60 mg PO DAILY 09/26/17 [History] Allergies/Adverse Reactions: 3 Allergy/AdvReac Type Severity Reaction Status Date / Time No Known Allergies Allergy Verified 09/26/17 14:30 - Respiratory Orders Smoking Cessation: Smoking cessation has been advised. For more information, call the [place] Tobacco Quit Line at 4-349-DOCB-NOW. - Lab Orders Lab Orders: 2 Step Mantoux Test per State regulation - Ancillary Orders May use pressure relief devices daily prn, May go on GASTON w/family/respon green party w /meds at nurse discretion PRN, May consult with Dentist, Ager Operator, Resaw Carriage Operator PRN - Mobility Orders Ambulate - Rehabiliation Orders Rehab Potential: Good Rehab Orders: ROM Exercises, Evaluation for Physical Therapy, Evaluation for Occupational Therapy - Treatments Skin tear care topically daily PRN per policy, May check for fecal impaction rectally daily PRN, Fleet enema rectally every other day PRN cleansing purposes - Diet Orders Cardiac CERTIFICATION: I certify that the transfer of the above named patient to an Extended Care Facility is necessary for the continuing treatment of the diagnosis listed. The above information is true and accurate reflection of patient's current condition. Confidential - Redisclosure prohibited without a patient's written consent. she is very unsteady and a fall risk and needs 24 hour care
[2017-09-30] MEDS: hydrALAZINE 10 MG TABLET PO SCH ×3 (00:59→12:11)
--- NOTE | 2017-09-30 08:57 | Discharge Summary ---
Date of Encounter: 10/01/17 Time of Encounter: 12:35 - Discharge Diagnosis (1) Urinary tract infection Priority: Primary Status: Acute Comments: She was put on IV Rocephin she remained afebrile her urinary symptoms resolved her urine culture did not grow anything in the Rocephin was stopped Qualifiers: Urinary tract infection type: acute cystitis Hematuria presence: without hematuria Qualified Code(s): N30.00 - Acute cystitis without hematuria (2) Dizziness Priority: Secondary Status: Acute Comments: She received IV fluids this did help with the dizziness, but she was still unsteady off-balance abnormal gait she has had abnormal gait for years with frequent and numerous falls. PT felt that she would benefit from stay with continued PT her insurance would not cover this we tried to get her admitted to [facility] and care insurance would not cover this either. We were forced to send her home with 24-hour care with family she went home with home health care. In the past she has not with them in the door. she promises she will let them in (3) Atrial fibrillation with controlled ventricular rate Priority: Secondary Status: Acute Comments: This was new onset for her she cannot be anticoagulated be on aspirin and Plavix due to the fact that she has frequent falls she would be a huge risk for bleed. She is alSo very noncompliant with her medications sometimes she will take him sometimes she will put them on the floor sometime she will hide them. (4) Hypertension Priority: Secondary Status: Acute Comments: She is not Compliant with her medications at home her home medicines were started her diastolics were in the 40s so we did not push any medication any further than her home medicine. Qualifiers: Hypertension type: essential hypertension Qualified Code(s): I10 - Essential (primary) hypertension (5) CKD (chronic kidney disease) stage 3, GFR 30-59 ml/min Priority: Secondary Status: Acute Comments: This did improve with IV hydration. (6) Pernicious anemia Priority: Secondary Status: Acute Comments: Her vitamin B12 level was above normal she has had B12 injections in the past we will continue her on by mouth vitamin supplementation. Her hemoglobin remained low but stable for her. (7) CAD (coronary artery disease) Priority: Secondary Status: Acute Comments: sHe did not have any symptoms of chest pain while inpatient. Qualifiers: Coronary Disease-Associated Artery/Lesion type: bypass graft, autologous vein Associated angina: without angina Qualified Code(s): I25.810 - Atherosclerosis of coronary artery bypass graft(s) without angina pectoris (8) HLD (hyperlipidemia) Priority: Secondary Status: Acute Comments: That was stable during this hospitalization Qualifiers: Hyperlipidemia type: mixed hyperlipidemia Qualified Code(s): E78.2 - Mixed hyperlipidemia (9) Physical deconditioning Priority: Secondary Status: Acute Comments: She was evaluated by PT and OT she was felt appropriate for continued inpatient treatment she was on state insurance would not cover an admission to [facility] insurance [facility] we are forced to send her home with 24-hour supervision and home health care. To be left alone with her family as well and also instructed to keep using her walker. - Discharge Medications Home Medications: Aspirin 325 mg PO DAILY 02/10/16 [History] Atorvastatin Calcium [Lipitor] 20 mg PO DAILY 02/10/16 [History] Calcium Carbonate/Vitamin D2 [Oyster Shell Calcium-Vit D Tab] 1 each PO DAILY [History] Clopidogrel [Plavix] 75 mg PO DAILY 02/10/16 [History] Ergocalciferol (VITAMIN D2) [Vitamin D2 (50,000 UNIT)] 50,000 unit PO QWEEK [History] Furosemide [Lasix] 40 mg PO DAILY 02/10/16 [History] Isosorbide MONOnitrate (24 HR) [Imdur] 60 mg PO DAILY 02/10/16 [History] Nitroglycerin [Nitrostat] 0.4 mg SL ONCE PRN 02/10/16 [History] Polyethylene Glycol 3350 [MiraLAX] 17 gm PO DAILY PRN 02/10/16 [History] Ranolazine [Ranexa] 1,000 mg PO BID 02/10/16 [History] Raloxifene [Evista] 60 mg PO DAILY 07/03/16 [History] Cyanocobalamin (Vitamin B-12) [Vitamin B-12] 2,000 mcg PO DAILY #30 tablet 04/27 [Rx] Citalopram Hydrobromide [Citalopram HBr] 10 mg PO DAILY 09/26/17 [History] Propranolol HCl 60 mg PO DAILY 09/26/17 [History] hydrALAZINE [HydrALAZINE] 10 mg PO Q6HR tablet 09/30/17 [Rx] Allergies/Adverse Reactions: 3 Allergy/AdvReac Type Severity Reaction Status Date / Time No Known Allergies Allergy Verified 09/26/17 14:30 Date of admission: 09/26/17 15:51 Primary care physician: Aida Norman, Consults: 09/26/17 15:57 Consult to Physical Therapy [CONS] Routine Comment: Evaluate, develop and implement POC Reason for Consult: gait stability Consult to Mortgage Assistant [CONS] Routine Reason for SW Consult: discharge planning 09/27/17 13:03 Consult to Occupational Therapy [CONS] Routine Comment: Evaluate, develop and implement POC Reason for Consult: eval fall at home - Patient Status Disposition: Home Health Service Condition: Good Functional capacity at discharge: uses cane/walker Overall status at discharge: patient is progressing back to baseline - Discharge Instructions Instructions: Atrial Fibrillation (DC), Urinary Tract Infection in Women (DC), Calcium and Osteoporosis (DC), Chronic Hypertension (DC), Anemia (GEN) Follow Up With: Aida Norman MD [Primary Care Provider] - 10/04/17 3:00 pm - Diet and Activity Activity: ambulate only with your walker, as per physical therapy Diet: low fat, low cholesterol, low salt diet Interval History: He presented to the emergency room after she had frequent falls at home dizziness she was admitted for UTI deconditioning new-onset A. fib. She is not an anticoagulation candidate due to the fact that she has frequent falls PT and OT evaluated her felt that she was appropriate for inpatient stay but insurance would not approve we are forced to send her home with 24-hour supervision and home health care. Pressure was very high she is noncompliant with medicines at home. Number states that they will be found on the floor she took them here her diastolics were in the 40 so we did not further increase anything got her home medicine. Hospital course: Ms. Marsh is a 87 year old female - Time Spent with Patient Total time spent providing and/or coordinating discharge services: - Constitutional Vitals: Temp Pulse Resp BP Pulse Ox 97.6 F 64 14 195/73 100 09/30/17 05:35 09/30/17 05:35 09/30/17 05:35 09/30/17 05:35 09/30/17 05:35 General appearance: Present: cooperative, A&O X 3, pleasant, no acute distress, answers questions appropriately - VTE Documentation of Mechanical Device: Graduated compression elastic hosiery
[2017-09-30] MEDS: Aspirin 325 MG TABLET PO SCH (08:58)
[2017-09-30] MEDS: Cyanocobalamin (B-12) 1,000 MCG TABLET PO SCH (08:58)
[2017-09-30] MEDS: Furosemide 40 MG TABLET PO SCH (08:58)
[2017-09-30] MEDS: Isosorbide MONOnitrate (24 HR) 60 MG TAB.ER.24H PO SCH (08:58)
[2017-09-30] MEDS: Ranolazine 500 MG TAB.ER.12H PO SCH (08:58)
[2017-09-30] MEDS: VITAMIN D2 PO SCH (08:59)
[2017-09-30] MEDS: CALCIUM CARBONATE PO SCH (08:59)
[2017-09-30 11:34] VITALS: BP 153/53
--- NOTE | 2017-09-30 14:56 | Physician Discharge Referral ---
Home Health/Hosp Referral Info Transfer to: Home Health (will need to go in. Patient is very hard of hearing and cannot hear the door [place]. Writing info works well with her.) Attending Provider: [place] Provider in Charge Post Discharge: PCP - Diagnosis (1) Urinary tract infection Priority: Secondary Status: Acute (2) Dizziness Priority: Primary Status: Acute (3) Atrial fibrillation with controlled ventricular rate Priority: Secondary Status: Acute (4) Hypertension Priority: Secondary Status: Acute (5) CKD (chronic kidney disease) stage 3, GFR 30-59 ml/min Priority: Secondary Status: Acute (6) Pernicious anemia Priority: Secondary Status: Acute (7) CAD (coronary artery disease) Priority: Secondary Status: Acute (8) HLD (hyperlipidemia) Priority: Secondary Status: Acute (9) Physical deconditioning Priority: Primary Status: Acute - Respiratory Orders Smoking Cessation: Smoking cessation has been advised. For more information, call the [place] Tobacco Quit Line at 5-712-PUEG-NOW. - Transfer Medications Home Medications: Aspirin 325 mg PO DAILY 02/10/16 [History] Atorvastatin Calcium [Lipitor] 20 mg PO DAILY 02/10/16 [History] Calcium Carbonate/Vitamin D2 [Oyster Shell Calcium-Vit D Tab] 1 each PO DAILY [History] Clopidogrel [Plavix] 75 mg PO DAILY 02/10/16 [History] Ergocalciferol (VITAMIN D2) [Vitamin D2 (50,000 UNIT)] 50,000 unit PO QWEEK [History] Furosemide [Lasix] 40 mg PO DAILY 02/10/16 [History] Isosorbide MONOnitrate (24 HR) [Imdur] 60 mg PO DAILY 02/10/16 [History] Nitroglycerin [Nitrostat] 0.4 mg SL ONCE PRN 02/10/16 [History] Polyethylene Glycol 3350 [MiraLAX] 17 gm PO DAILY PRN 02/10/16 [History] Ranolazine [Ranexa] 1,000 mg PO BID 02/10/16 [History] Raloxifene [Evista] 60 mg PO DAILY 07/03/16 [History] Cyanocobalamin (Vitamin B-12) [Vitamin B-12] 2,000 mcg PO DAILY #30 tablet 04/27 [Rx] Citalopram Hydrobromide [Citalopram HBr] 10 mg PO DAILY 09/26/17 [History] Propranolol HCl 60 mg PO DAILY 09/26/17 [History] hydrALAZINE [HydrALAZINE] 10 mg PO Q6HR tablet 09/30/17 [Rx] Allergies/Adverse Reactions: 3 Allergy/AdvReac Type Severity Reaction Status Date / Time No Known Allergies Allergy Verified 09/26/17 14:30 Certification: Further, I certify that my clinical findings support that this patient is homebound (i.e. absences from home require considerable and taxing effort and are for medical reasons or tenriism services or infrequently or short duration when for other reasons) because: of frequent falls deconditioning Homebound Reason: Patient requires assistance of a person or device to safely leave home, Leaving home requires considerable and taxing effort due to condition (frequent falls unsteady gait deconditioning) Attestation: My signature below is to certify that this patient is under my care and that I, or nurse practitioner, or a physician's stores assistant working with me, has a face-to -face encounter with this patient.
== END 2017-09-30 15:58 | disposition home health service (06) ==
LOC: INPGRE 14:13 → EMEROOGRE 14:13 → INPGRE 16:07
PROVIDERS: ADMIT Family Medicine; ATTEND Family Medicine